=== PATIENT | female | born 1950 | race African-American/Black ===

== ENCOUNTER 2017-02-28 08:54 | Emergency (ER) | payer OTHER ==
[~2017-02-28] VITALS: Ht 154.9 cm; Wt 54.4 kg
[2017-02-28 09:58] LABS: Basophils # (auto) 0 uL; Basophils % (auto) 0.4 % (0.0-2.0); CONDITION Y; DEFINITIVE SEE PRINTOUT; Eosinophils # (auto) 0.1 uL; Hematocrit 35.9 % (36.0-46.0); Hemoglobin 11.8 g/dL (12.2-16.2); Lymphocytes # (auto) 1.6 uL; Lymphocytes % (auto) 19.5 % (10.0-50.0); Mean Corpuscular Hemoglobin 22.6 pg (28.0-32.0); Mean Corpuscular Hgb Conc. 32.8 g/dL (32.0-36.0); Mean Corpuscular Volume 69.1 fL (80.0-100.0); Mean Platelet Volume 9.3 fL (7.4-10.4); Monocytes # (auto) 0.7 uL; Monocytes % (auto) 7.8 % (0.0-12.0); Neutrophils # (auto) 5.9 uL; Neutrophils % (auto) 71.3 % (37.0-80.0); Platelet Count (auto) 257 10^3/uL (140-450); Red Cell Distribution Width 14.8 % (11.6-16.0); White Blood Cell 8.3 10^3/uL (4.4-10.8)
[2017-02-28] MEDS ORDERED: KETOROLAC TROMETH 30 MG/ML 1ML VIAL IV ONE (10:00)
[2017-02-28] MEDS ORDERED: METOCLOPRAMIDE HCL 5MG/ml INJ 2ml VIAL IV ONE (10:00)
[2017-02-28 10:19] LABS: Albumin 4.1 g/dL (3.4-5.0); BUN/Creatinine Ratio 23.2; Bilirubin, Total 0.6 mg/dL (0.2-1.0); Calcium 9.6 mg/dL (8.5-10.1); Magnesium 1.9 mg/dL (1.6-2.6); Potassium 3.5 mmol/L (3.5-5.1); Total Protein 8.2 g/dL (6.4-8.2)
[2017-02-28 10:40] VITALS: BP 154/85
== END 2017-02-28 13:22 | disposition home or self-care (01) ==
LOC: ER 09:04
DX: S20.211A Contusion of right front wall of thorax, initial encounter (principal); E11.9 Type 2 diabetes mellitus without complications; X58.XXXA Exposure to other specified factors, initial encounter; Y93.89 Activity, other specified; Y99.8 Other external cause status; Y92.89 Other specified places as the place of occurrence of the external cause
CPT/HCPCS: 36415; 71010; 80053; 83735; 84484; 85025; 93005; 94761; 96374; 96375; 99285; J1885; J2765

== ENCOUNTER 2025-03-29 09:09 | Emergency (ER) | payer OTHER ==
[~2025-03-29] VITALS: Ht 162.6 cm; Wt 44.5 kg
[~2025-03-29 09:09] MED LIST: DICL75TA3 PO
--- NOTE | 2025-03-29 09:39 | ED.PDOC ---
HPI Comments This is a 74-year-old female with past medical history of diabetes, hypertension, asthma and hypothyroidism brought in by EMS from home due to chest pain. Per patient, chest pain started today morning (does not remember exact of), located at left sternal border, nonradiating, and provoked, sharp in nature, which worsened with taking deep breaths and changing position. She also reports of shortness of breaths and having cough for few days. She denies fever, nausea, vomiting, headache, loss of consciousness on motor/sensory deficits. 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 Allergies: Coded Allergies: NO KNOWN ALLERGIES (Unverified , 02/28/17) Home Meds Active Scripts Diclofenac Sodium (Diclofenac Sodium Dr) 75 Mg Tab, 1 TAB PO BID PRN, #20 TAB 1 Refill Prov:ALLAN DIAZ MD 10/21/23 Mode of Arrival: EMS Past Medical History PAST MEDICAL HISTORY: Asthma, DM, HTN Surgical History: Denies all surgeries EMAIL SPECIALIST History: No Pertinent EMAIL SPECIALIST History Family History Family History: Unknown Social History Smoker: Non-Smoker Alcohol: Denies ETOH Use Drugs: Marijuana Lives In: Home Constitutional: denies: chills, diaphoresis, fatigue, fever, malaise, sweats, weakness, others EENTM: denies: blurred vision, double vision, ear bleeding, ear discharge, ear drainage, ear pain, ear ringing, eye pain, eye redness, hearing loss, mouth pain, mouth swelling, nasal discharge, nose bleeding, nose congestion, nose pain, photophobia, tearing, throat pain, throat swelling, voice changes, others Respiratory: denies: cough, hemoptysis, orthopnea, SOB at rest, shortness of breath, SOB with excertion, stridor, wheezing, others Cardiovascular: reports: chest pain; denies: dizzy spells, diaphoresis, Dyspnea on exertion, edema, irregular heart beat, left arm pain, lightheadedness, palpitations, PND, syncope, others Gastrointestinal: denies: abdomen distended, abdominal pain, blood streaked bowels, constipated, diarrhea, dysphagia, difficulty swallowing, hematemesis, melena, nausea, poor appetite, poor fluid intake, rectal bleeding, rectal pain, vomiting, others Genitourinary: denies: abnormal vagina bleeding, burning, dyspareunia, dysuria, flank pain, frequency, hematuria, incontinence, pain, , vagina discharge, urgency, others Neurological: denies: dizziness, fainting, headache, left sided numbness, left sided weakness, numbness, paresthesia, pre-existing deficit, right sided numbness, right sided weakness, seizure, speech problems, tingling, tremors, weakness, others Musculoskeletal: denies: back pain, gout, joint pain, joint swelling, muscle pain, muscle stiffness, neck pain, others Integumetry: denies: bruises, change in color, change in hair/nails, dryness, laceration, lesions, lumps, rash, wounds, others Allergic/Immunocompromised: denies: Difficulty Healing, Frequent Infections, Hives, Itching, others Hematologic/Lymphatic: denies: anemia, blood clots, easy bleeding, easy bruising, swollen glands, others Endocrine: denies: excessive hunger, excessive sweating, excessive thirst, excessive urination, flushing, intolerance to cold, intolerance to heat, unexplained weight gain, unexplained weight loss, others Psychiatric: denies: anxiety, bipolar disorder, depression, hopeless, panic disorder, schizophrenia, sleepless, suicidal, others Physical Exam General Appearance: No Apparent Distress, Normal HEENT: Normal ENT Inspection, Pharynx Normal, TMs Normal Neck: Full Range of Motion, Non-Tender, Normal, Normal Inspection Respiratory: Lungs Clear, No Accessory Muscle Use, No Respiratory Distress, Normal Breath Sounds, Other (Chest tender on palpation) Cardiovascular: No Edema, No JVD, No Murmur, No Gallop, Normal Peripheral Pulses, Regular Rate/Rhythm Breast Exam: Deferred Gastrointestinal: No Organomegaly, Non Tender, No Pulsatile Mass, Normal Bowel Sounds, Soft Genitalia: Deferred Pelvic: Deferred Rectal: Deferred Extremities: No calf tenderness, Normal capillary refill, Normal inspection, Normal range of motion, Non-tender, No pedal edema Musculoskeletal : Apperance: Normal Neurologic: Alert, drop tester II-XII nml as Tested, No Motor Deficits, Normal Affect, Normal Mood, No Sensory Deficits Cerebellar Function: Normal Reflexes: Normal Skin: Dry, Normal Color, Warm Lymphatic: No Adenopathy EKG EKG : Comments EKGs shows sinus rhythm with ST depression on inferior and lateral leads Was a procedure done? Was a procedure done?: No CP Differential Dx Differential Diagnosis: Other Differential Diagnosis: Angina, Chest Wall Pain, Costochondritis, Esophageal reflux/spasm X-Ray, Labs, Meds, VS Vital Signs Date Time Temp Pulse Resp B/P (MAP) Pulse Ox O2 Delivery O2 Flow Rate FiO2 03/29/25 18:54 84 18 152/71 03/29/25 18:00 83 17 152/71 (98) 98 03/29/25 16:00 97.9 105 17 142/78 (99) 98 97.9 03/29/25 14:38 95 Room Air* 0 21 03/29/25 14:33 76 17 95 Room Air* 0 21 03/29/25 14:00 75 17 139/77 (97) 98 03/29/25 12:09 73 03/29/25 12:00 71 17 148/73 (98) 98 03/29/25 10:42 77 16 140/72 03/29/25 10:12 80 17 155/91 03/29/25 10:04 75 03/29/25 10:00 98.3 77 17 155/91 (112) 98 98.3 03/29/25 09:15 98.0 78 18 121/99 96 98.0 03/29/25 09:13 69 Lab Test 03/29/25 12:45 03/29/25 11:37 03/29/25 10:51 03/29/25 10:28 Range/Units Sodium Level 142 136-145 mmol/L Potassium Level 3.6 3.5-5.1 mmol/L Chloride Level 106 98-107 mmol/L Carbon Dioxide Level 25 20-31 mmol/L Anion Gap 11 5-15 Blood Urea Nitrogen 11 9-23 mg/dL Creatinine 1.07 H 0.550-1.02 mg/dL Glomerular Filtration Rate Calc 54 >90 mL/min BUN/Creatinine Ratio 10.3 10.0-20.0 Serum Glucose 156 H 74-106 mg/dL Calcium Level 8.9 8.7-10.4 mg/dL Troponin I High Sensitivity 13 12 </=34 ng/L POC Glucose 36 *L 70-106 mg/dl Urine Color Colorless Yellow Urine Clarity Clear Clear Urine pH 7.0 5.0-9.0 Urine Specific [place] 1.008 1.001-1.035 Urine Protein Negative Negative Urine Ketones Negative Negative Urine Blood Negative Negative /uL Urine Nitrite Negative Negative Urine Bilirubin Negative Negative Urine Urobilinogen Normal Negative mg/dL Urine Leukocyte Esterase Negative Negative /uL Urine RBC None seen 0 - 4 /hpf Urine Microscopic WBC 1 0-5 /HPF Urine Squamous Epithelial Cells Few <5 /hpf Urine Bacteria None seen None Seen /hpf Urine Glucose Normal Normal mg/dL Test 03/29/25 09:57 Range/Units White Blood Count 8.4 4.4-10.8 10^3/uL Red Blood Count 4.35 4.0-5.20 10^6/uL Hemoglobin 9.4 L 12.2-16.2 g/dL Hematocrit 29.6 L 36.0-46.0 % Mean Corpuscular Volume 68.0 L 80.0-100.0 fL Mean Corpuscular Hemoglobin 21.7 L 28.0-32.0 pg Mean Corpuscular Hemoglobin Concent 32.0 32.0-36.0 g/dL Red Cell Distribution Width 15.4 H 11.8-14.3 % Platelet Count 435 140-450 10^3/uL Mean Platelet Volume 7.3 6.9-10.8 fL Neutrophils (%) (Auto) 73.8 37.0-80.0 % Lymphocytes (%) (Auto) 15.9 10.0-50.0 % Monocytes (%) (Auto) 8.1 0.0-12.0 % Eosinophils (%) (Auto) 0.9 0.0-7.0 % Basophils (%) (Auto) 1.3 0.0-2.0 % Neutrophils # (Auto) 6.2 1.6-8.6 10 ^3/uL Lymphocytes # (Auto) 1.3 0.4-5.4 10 ^3/uL Monocytes # (Auto) 0.7 0-1.3 10 ^3/uL Eosinophils # (Auto) 0.1 0-0.8 10 ^3/uL Basophils # (Auto) 0.1 0-0.2 10 ^3/uL Nucleated Red Blood Cells 0.0 % Sodium Level 143 136-145 mmol/L Potassium Level 3.5 3.5-5.1 mmol/L Chloride Level 107 98-107 mmol/L Carbon Dioxide Level 26 20-31 mmol/L Anion Gap 10 5-15 Blood Urea Nitrogen 8 L 9-23 mg/dL Creatinine 1.03 H 0.550-1.02 mg/dL Glomerular Filtration Rate Calc 56 >90 mL/min BUN/Creatinine Ratio 7.8 L 10.0-20.0 Serum Glucose 77 74-106 mg/dL Calcium Level 9.4 8.7-10.4 mg/dL Magnesium Level 1.3 L 1.6-2.6 mg/dL Troponin I High Sensitivity 11 </=34 ng/L B-Type Natriuretic Peptide 101.34 0-100 pg/mL Current Medications Medications (Trade) Dose Ordered Sig/Annika Route Start Time Stop Time Status Last Admin Morphine Sulfate 4 mg ONCE ONCE IV 03/29/25 09:45 03/29/25 09:46 DC 03/29/25 10:12 Ondansetron HCl (Zofran) 4 mg ONCE ONCE IV 03/29/25 09:45 03/29/25 09:46 DC 03/29/25 10:12 Atorvastatin Calcium (Lipitor) 40 mg ONCE ONCE PO 03/29/25 09:45 03/29/25 09:46 DC 03/29/25 10:13 Dextrose 50 ml ONCE ONCE IV 03/29/25 11:45 03/29/25 11:46 DC 03/29/25 11:58 Magnesium Sulfate/ Dextrose 100 ml @ 100 mls/hr Q1H IV 03/29/25 12:15 03/29/25 16:14 DC 03/29/25 16:45 Morphine Sulfate 4 mg ONCE ONCE IV 03/29/25 18:45 03/29/25 18:46 DC 03/29/25 18:54 Ondansetron HCl (Zofran) 4 mg ONCE ONCE IV 03/29/25 18:45 03/29/25 18:46 DC 03/29/25 18:54 Time of 1ST Reevaluation: 19:41 Reevaluation 1ST: Unchanged Patient Education/Counseling: Diagnosis, Treatment, Prognosis, Need For Follow Up Family Education/Counseling: No Family Present Comments Patient came to the hospital due to chest pain. Patient was vitally stable. Serial EKGs showed ST depression on inferior leads and lateral leads. Trop I within normal limits Hb was low at 9.4. Patient's glucose was 36, 50 mL of 50% dextrose was given Magnesium was 1.3, for g magnesium given Patient was also given aspirin, atorvastatin, morphine and Zofran On subsequent checkup, patient was feeling the same Patient's status discussed with [place], agreed to transfer the patient Patient will be transferred SEPSIS Sepsis Screen Date sepsis recognized/suspect: Mar 29, 2025 Time Sepsis recognized/suspect: 919 Recent Procedure: No On Antibiotic Therapy: No Respiratory Rate >20: No Heart Rate >90: No Temp<36 C (96.8 F) or >38.3 C: No SBP <90 or MAP <65 mmHG: No New Acute Mental Status Change: No Is the patient on CPAP, BIPAP,: No Physician Orders Electrocardigram (03/29/25 09:17) Electrocardigram (03/29/25 10:17) Electrocardigram (03/29/25 12:17) Chest Portable (03/29/25 09:24) Imaging Transfer Request (03/29/25 17:01) Vital Signs Date Time Temp Pulse Resp B/P (MAP) Pulse Ox O2 Delivery O2 Flow Rate FiO2 03/29/25 18:54 84 18 152/71 03/29/25 18:00 83 17 152/71 (98) 98 03/29/25 16:00 97.9 105 17 142/78 (99) 98 97.9 03/29/25 14:38 95 Room Air* 0 21 03/29/25 14:33 76 17 95 Room Air* 0 21 03/29/25 14:00 75 17 139/77 (97) 98 03/29/25 12:09 73 03/29/25 12:00 71 17 148/73 (98) 98 03/29/25 10:42 77 16 140/72 03/29/25 10:12 80 17 155/91 03/29/25 10:04 75 03/29/25 10:00 98.3 77 17 155/91 (112) 98 98.3 03/29/25 09:15 98.0 78 18 121/99 96 98.0 03/29/25 09:13 69 Laboratory Tests Test 03/29/25 09:57 White Blood Count 8.4 10^3/uL (4.4-10.8) Medications Medications Dose Ordered Sig/Anniak Route Start Time Stop Time Status Last Admin Dose Admin Atorvastatin Calcium 40 mg ONCE ONCE PO 03/29/25 09:45 03/29/25 09:46 DC 03/29/25 10:13 Dextrose 50 ml ONCE ONCE IV 03/29/25 11:45 03/29/25 11:46 DC 03/29/25 11:58 Magnesium Sulfate/ Dextrose 100 ml @ 100 mls/hr Q1H IV 03/29/25 12:15 03/29/25 16:14 DC 03/29/25 16:45 Morphine Sulfate 4 mg ONCE ONCE IV 03/29/25 09:45 03/29/25 09:46 DC 03/29/25 10:12 Morphine Sulfate 4 mg ONCE ONCE IV 03/29/25 18:45 03/29/25 18:46 DC 03/29/25 18:54 Ondansetron HCl 4 mg ONCE ONCE IV 03/29/25 09:45 03/29/25 09:46 DC 03/29/25 10:12 Ondansetron HCl 4 mg ONCE ONCE IV 03/29/25 18:45 03/29/25 18:46 DC 03/29/25 18:54 Departure 1 Departure Time of Disposition: 16:21 ([place] Authorization: [id number] presented with chest pain that was concerning for possible STEMI, ACS, PE, Pneumonia, Muscle Strain, COPD, Dissection. Data: 1. I ordered and reviewed the result of at least 3 labs including a CBC, BMP, and Troponin. 2. I independently interpreted the following tests: EKG which shows sinus arrhythmia and Chest X-ray which shows pulmonary vascular congestion _.Risk:This patient has a high risk of morbidity due to further diagnostic testing or treatment and may suffer from an acute cardiac or respiratory disorder. Workup reveals concern for ACS and patient should be admitted for further workup and possible expert consultation. ) Impression: Primary Impression: Acute chest pain Additional Impression: Musculoskeletal chest pain Disposition: 30 STILL A PATIENT Admit to: Tele Condition: Serious Critical Care Note Critical Care Time?: Yes Critical care comment: Acute chest pain Authorized and Performed by: Em Leblanc MD Total critical care time: Approximately 38 minutes Due to a high probability of clinically significant, life threatening deterioration, the patient required my highest level of preparedness to intervene emergently and I personally spent this critical care time directly and personally managing the patient. This critical care time included obtaining a history; examining the patient; pulse oximetry; ordering and review of studies; arranging urgent treatment with development of a management plan; evaluation of patient's response to treatment; frequent reassessment; and, discussions with other providers. This critical care time was performed to assess and manage the high probability of imminent, life-threatening deterioration that could result in multi-organ failure. It was exclusive of separately billable procedures and treating other patients and teaching time. Please see my other sections and the rest of the note for further information on patient assessment and treatment. Stability Stability form required: No Heart Score Heart Score: Heart Score Response (Comments) Value History Moderate Suspicious 1 EKG Repolarization Disturb 1 Age >65 2 Risk Factors 1 or 2 risk factors 1 Troponin Normal limit 0 Total 5 [place] Mar 29, 2025 09:39 EM LEBLANC MD Mar 29, 2025 16:21
--- NOTE | 2025-03-29 09:45 | ECG ---
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
--- NOTE | 2025-03-29 10:02 | DVH ---
XY CHEST PORTABLE, HISTORY: cp COMPARISON: XY CHEST PORTABLE on DOS: 10/21/23 XY CHEST PORTABLE on DOS: 10/21/23 TECHNICAL DATA: 1 view of the chest was obtained. FINDINGS: Lines and tubes: None Cardiomediastinal silhouette: normal Pulmonary vasculature: prominent Lung expansion: low Lung airspace: normal Lung interstitium: normal Pleura: normal Pneumothorax: no Bones: Unremarkable Other: no IMPRESSION: Pulmonary vascular congestion.
--- NOTE | 2025-03-29 10:06 | ECG ---
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
[2025-03-29 10:12] LABS: Hemoglobin 9.4 g/dL (12.2-16.2); Nucleated Red Blood Cells % 0.0 %
[2025-03-29] MEDS: ONDANSETRON HCL 4 MG/2 ML VIAL IV ONE ×2 (10:12→18:54)
[2025-03-29] MEDS: MORPHINE SULFATE 4 MG/ML SYR/VIAL IV ONE ×2 (10:12→18:54)
[2025-03-29] MEDS: ATORVASTATIN 20 MG TAB PO ONE (10:13)
[2025-03-29 10:14] LABS: Hematocrit 29.6 % (36.0-46.0); Mean Corpuscular Hemoglobin 21.7 pg (28.0-32.0); Mean Corpuscular Volume 68.0 fL (80.0-100.0)
[2025-03-29 10:17] LABS: Anion Gap 10 (5-15); Carbon Dioxide 26 mmol/L (20-31); Chloride 107 mmol/L (98-107); Potassium 3.5 mmol/L (3.5-5.1); Sodium 143 mmol/L (136-145)
[2025-03-29 10:18] LABS: Calcium 9.4 mg/dL (8.7-10.4)
[2025-03-29 10:23] LABS: BUN/Creatinine Ratio 7.8 (10.0-20.0); Blood Urea Nitrogen 8 mg/dL (9-23); Glucose 77 mg/dL (74-106)
[2025-03-29] MEDS: DEXTROSE (50%) 50ML SYRG IV ONE (11:58)
--- NOTE | 2025-03-29 12:08 | ECG ---
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
[2025-03-29] MEDS: MAGNESIUM SULFATE 1GM/100ML 100 ML IV SCH (13:24)
[2025-03-29 14:33] VITALS: PULSE 76; RESP 17; O2SAT 95
[2025-03-29 16:37] LABS: Chloride 106 mmol/L (98-107); Potassium 3.6 mmol/L (3.5-5.1); Sodium 142 mmol/L (136-145)
[2025-03-29 16:38] LABS: Anion Gap 11 (5-15); Carbon Dioxide 25 mmol/L (20-31)
[2025-03-29 16:39] LABS: Calcium 8.9 mg/dL (8.7-10.4)
[2025-03-29 16:44] LABS: BUN/Creatinine Ratio 10.3 (10.0-20.0); Blood Urea Nitrogen 11 mg/dL (9-23)
[2025-03-29 16:45] LABS: Glucose 156 mg/dL (74-106)
[2025-03-29 18:31] LABS: Urine Protein, UAD Negative (Negative)
[2025-03-29 19:50] VITALS: PULSE 84; RESP 14; O2SAT 95
[2025-03-29 23:38] VITALS: BP 121/67; PULSE 80; RESP 16; TEMP 98.2; O2SAT 98
== END 2025-03-29 22:41 | disposition short-term general hospital (02) ==
LOC: ER 09:09 → EDUNIT# 09:09 → EDBD 09:09 → ER 22:41
DX: R07.89 Other chest pain (principal); F12.90 Cannabis use, unspecified, uncomplicated; E11.9 Type 2 diabetes mellitus without complications; I10 Essential (primary) hypertension; J45.909 Unspecified asthma, uncomplicated; Z79.899 Other long term (current) drug therapy
CPT/HCPCS: 36415; 71045; 80048; 81001; 82947; 83735; 83880; 84484; 85025; 93005; 96365; 96366; 96375; 96376; 99285; J2270; J2405; J3475; J7042; 82962; 99291

== ENCOUNTER 2025-04-28 20:07 | Inpatient (IN) | payer OTHER ==
[~2025-04-28] VITALS: Ht 165.1 cm; Wt 42.1 kg
--- NOTE | 2025-04-28 20:36 | ED.PDOC ---
History of present illness HPI Comments 74-year-old female who came to ER via EMS for hyperglycemia. Has history of hypertension and diabetes, has good compliance to her medications. With the past week, her blood sugar levels has been elevated despite medications. For the past day, blood sugar levels read "hi". Patient currently complaining of headaches and dizziness. 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 Allergies: Coded Allergies: NO KNOWN ALLERGIES (Unverified , 02/28/17) Home Meds Active Scripts Diclofenac Sodium (Diclofenac Sodium Dr) 75 Mg Tab, 1 TAB PO BID PRN, #20 TAB 1 Refill Prov:ALLAN DIAZ MD 10/21/23 Information Source: Patient Mode of Arrival: EMS Timing: Days Duration: Since onset [place]: Shaky, Sweaty Symptoms: Anxious, Shaky, Sweaty History of: Diabetes, Oral hypoglycemic use Past Medical History PAST MEDICAL HISTORY: Asthma, DM, HTN Surgical History: Denies all surgeries CADDY History: No Pertinent CADDY History Family History Family History: Unknown Social History Smoker: Non-Smoker Alcohol: Denies ETOH Use Drugs: Denies Drug Use Lives In: Home Constitutional: denies: chills, diaphoresis, fatigue, fever, malaise, sweats, weakness, others EENTM: denies: blurred vision, double vision, ear bleeding, ear discharge, ear drainage, ear pain, ear ringing, eye pain, eye redness, hearing loss, mouth pain, mouth swelling, nasal discharge, nose bleeding, nose congestion, nose pain, photophobia, tearing, throat pain, throat swelling, voice changes, others Respiratory: denies: cough, hemoptysis, orthopnea, SOB at rest, shortness of b reath, SOB with excertion, stridor, wheezing, others Cardiovascular: denies: chest pain, dizzy spells, diaphoresis, Dyspnea on exertion, edema, irregular heart beat, left arm pain, lightheadedness, palpitations, PND, syncope, others Gastrointestinal: denies: abdomen distended, abdominal pain, blood streaked bowels, constipated, diarrhea, dysphagia, difficulty swallowing, hematemesis, melena, nausea, poor appetite, poor fluid intake, rectal bleeding, rectal pain, vomiting, others Neurological: reports: headache, weakness; denies: dizziness, fainting, left sided numbness, left sided weakness, numbness, paresthesia, pre-existing deficit, right sided numbness, right sided weakness, seizure, speech problems, tingling, tremors, others Musculoskeletal: denies: back pain, gout, joint pain, joint swelling, muscle pain, muscle stiffness, neck pain, others Integumetry: denies: bruises, change in color, change in hair/nails, dryness, laceration, lesions, lumps, rash, wounds, others Allergic/Immunocompromised: denies: Difficulty Healing, Frequent Infections, Hives, Itching, others Hematologic/Lymphatic: denies: anemia, blood clots, easy bleeding, easy bruising, swollen glands, others Endocrine: denies: excessive hunger, excessive sweating, excessive thirst, excessive urination, flushing, intolerance to cold, intolerance to heat, unexplained weight gain, unexplained weight loss, others Psychiatric: denies: anxiety, bipolar disorder, depression, hopeless, panic disorder, schizophrenia, sleepless, suicidal, others Physical Exam General Appearance: No Apparent Distress, Normal HEENT: Normal ENT Inspection, Pharynx Normal, TMs Normal Neck: Full Range of Motion, Non-Tender, Normal, Normal Inspection Respiratory: Chest Non-Tender, Lungs Clear, No Accessory Muscle Use, No Respiratory Distress, Normal Breath Sounds Cardiovascular: No Edema, No JVD, No Murmur, No Gallop, Normal Peripheral Pulses, Regular Rate/Rhythm Breast Exam: Deferred Gastrointestinal: No Organomegaly, Non Tender, No Pulsatile Mass, Normal Bowel Sounds, Soft Genitalia: Deferred Pelvic: Deferred Rectal: Deferred Extremities: No calf tenderness, Normal capillary refill, Normal inspection, Normal range of motion, Non-tender, No pedal edema Musculoskeletal : Apperance: Normal Neurologic: Alert, lathe set up operator II-XII nml as Tested, No Motor Deficits, Normal Affect, Normal Mood, No Sensory Deficits Cerebellar Function: Normal Reflexes: Normal Skin: Dry, Normal Color, Warm Lymphatic: No Adenopathy Was a procedure done? Was a procedure done?: No Differential Diagnosis (DM) Differential Diagnosis: Dehydration, DKA, Electrolyte Abnormality, Hyperglycemia X-Ray, Labs, Meds, VS Vital Signs Date Time Temp Pulse Resp B/P (MAP) Pulse Ox O2 Delivery O2 Flow Rate FiO2 04/28/25 20:25 97.7 97 17 132/68 97 97.7 Lab Test 04/28/25 20:54 04/28/25 20:53 04/28/25 20:50 04/28/25 20:41 Range/Units White Blood Count 8.9 4.4-10.8 10^3/uL Red Blood Count 5.69 H 4.0-5.20 10^6/uL Hemoglobin 11.9 L 12.2-16.2 g/dL Hematocrit 37.1 36.0-46.0 % Mean Corpuscular Volume 65.1 L 80.0-100.0 fL Mean Corpuscular Hemoglobin 21.0 L 28.0-32.0 pg Mean Corpuscular Hemoglobin Concent 32.2 32.0-36.0 g/dL Red Cell Distribution Width 15.5 H 11.8-14.3 % Platelet Count 271 140-450 10^3/uL Mean Platelet Volume 9.2 6.9-10.8 fL Neutrophils (%) (Auto) 66.5 37.0-80.0 % Lymphocytes (%) (Auto) 24.4 10.0-50.0 % Monocytes (%) (Auto) 7.9 0.0-12.0 % Eosinophils (%) (Auto) 0.6 0.0-7.0 % Basophils (%) (Auto) 0.6 0.0-2.0 % Neutrophils # (Auto) 6.0 1.6-8.6 10 ^3/uL Lymphocytes # (Auto) 2.2 0.4-5.4 10 ^3/uL Monocytes # (Auto) 0.7 0-1.3 10 ^3/uL Eosinophils # (Auto) 0.1 0-0.8 10 ^3/uL Basophils # (Auto) 0.1 0-0.2 10 ^3/uL Nucleated Red Blood Cells 0.1 % Sodium Level 122 L 136-145 mmol/L Potassium Level 5.5 H 3.5-5.1 mmol/L Chloride Level 86 L 98-107 mmol/L Carbon Dioxide Level 24 20-31 mmol/L Anion Gap 12 5-15 Blood Urea Nitrogen 49 H 9-23 mg/dL Creatinine 2.10 H 0.550-1.02 mg/dL Glomerular Filtration Rate Calc 24 >90 mL/min BUN/Creatinine Ratio 23.3 H 10.0-20.0 Serum Glucose 504 *H 74-106 mg/dL Calcium Level 9.6 8.7-10.4 mg/dL Magnesium Level 2.2 1.6-2.6 mg/dL Total Bilirubin 0.4 0.2-1.0 mg/dL Aspartate Amino Transferase (AST) 17 13-40 U/L Alanine Aminotransferase (ALT) 15 7-40 U/L Alkaline Phosphatase 80 46-116 U/L Total Protein 9.2 H 5.7-8.2 g/dL Albumin 4.7 3.2-4.8 g/dL POC Glucose 502 *H 70-106 mg/dl Blood Gas Specimen Type Venous Blood Gas Sample Site Vbg - n/a Blood Gas Patient Temperature 37.0 Arterial Blood Date Drawn Brendan Test N/a Venous Blood pH 7.400 7.320-7.430 Venous Blood pCO2 at Patient Temp 36.6 L 38.0-54.0 mmHg Venous Blood pO2 at Patient Temp < 36.5 23.0-48.0 mmHg Venous Blood HCO3 22.2 22.0-29.0 mmol/L Venous Blood Base Excess -2.1 L -2.0-3.0 mmol/L Blood Gas Modality Room air FiO2 % 21.0 Urine Color Colorless Yellow Urine Clarity Clear Clear Urine pH 5.0 5.0-9.0 Urine Specific [place] 1.004 1.001-1.035 Urine Protein Negative Negative Urine Ketones Negative Negative Urine Blood Negative Negative /uL Urine Nitrite Negative Negative Urine Bilirubin Negative Negative Urine Urobilinogen Normal Negative mg/dL Urine Leukocyte Esterase Negative Negative /uL Urine RBC <1 0 - 4 /hpf Urine Microscopic WBC < 1 0-5 /HPF Urine Squamous Epithelial Cells Few <5 /hpf Urine Bacteria None seen None Seen /hpf Urine Glucose 4+ H Normal mg/dL Current Medications Medications (Trade) Dose Ordered Sig/Annika Route Start Time Stop Time Status Last Admin Sodium Chloride 1,000 ml @ 1,000 mls/hr Q1H ONCE IV 04/28/25 20:45 04/28/25 21:44 DC 04/28/25 21:17 Insulin Human Regular (InsuLIN R) 4 units ONCE ONCE SC 04/28/25 20:45 04/28/25 20:46 DC 04/28/25 20:59 Time of 1ST Reevaluation: 20:34 Reevaluation 1ST: Unchanged Patient Education/Counseling: Diagnosis, Treatment Family Education/Counseling: No Family Present SEPSIS Sepsis Screen Date sepsis recognized/suspect: Apr 28, 2025 Time Sepsis recognized/suspect: 2012 Recent Procedure: No On Antibiotic Therapy: No Respiratory Rate >20: No Heart Rate >90: No Temp<36 C (96.8 F) or >38.3 C: No SBP <90 or MAP <65 mmHG: No New Acute Mental Status Change: No Is the patient on CPAP, BIPAP,: No Physician Orders Venous Blood Gas (04/28/25 20:41) Vital Signs Date Time Temp Pulse Resp B/P (MAP) Pulse Ox O2 Delivery O2 Flow Rate FiO2 04/28/25 20:25 97.7 97 17 132/68 97 97.7 Laboratory Tests Test 04/28/25 20:54 White Blood Count 8.9 10^3/uL (4.4-10.8) Medications Medications Dose Ordered Sig/Annika Route Start Time Stop Time Status Last Admin Dose Admin Insulin Human Regular 4 units ONCE ONCE SC 04/28/25 20:45 04/28/25 20:46 DC 04/28/25 20:59 Sodium Chloride 1,000 ml @ 1,000 mls/hr Q1H ONCE IV 04/28/25 20:45 04/28/25 21:44 DC 04/28/25 21:17 Departure 1 Departure Time of Disposition: 22:28 Impression: Primary Impression: Acute renal injury Additional Impressions: Type 2 diabetes mellitus with hyperglycemia Hyponatremia Hypochloremia Hyperkalemia Disposition: ADMITTED INPATIENT Admit to: Med Surg Condition: Guarded Discharged With: Self Comments 74-year-old female with a history of type 2 diabetes now presents with fatigue and generalized weakness and polydipsia. On lab review her blood sugar is quite elevated at 502. Patient's sodium is low at 122. Chloride is low at 86. She has acute renal injury with BUN creatinine elevated at 49 and 2.1. Potassium is elevated at 5.5. Anion gap is normal at 12. Patient was given IV fluids and insulin. Patient will need to be admitted for supportive care and further workup. Critical Care Note Critical Care Time?: Yes (35 min-critical care time only) Critical care comment: Hyperglycemia Total critical care time: Approximately 36 minutes Due to a high probability of clinically significant, life threatening deterioration, the patient required my highest level of preparedness to intervene emergently and I personally spent this critical care time directly and personally managing the patient. This critical care time included obtaining a history; examining the patient; pulse oximetry; ordering and review of studies; arranging urgent treatment with development of a management plan; evaluation of patient's response to treatment; frequent reassessment; and, discussions with other providers. This critical care time was performed to assess and manage the high probability of imminent, life-threatening deterioration that could result in multi-organ failure. It was exclusive of separately billable procedures and treating other patients. Stability Stability form required: No Heart Score Heart Score: Heart Score Response (Comments) Value History N/A 0 EKG N/A 0 Age N/A 0 Risk Factors N/A 0 Troponin N/A 0 Total 0 I personally scribed for GIAN KUO MD ([email or web address]) on 04/28/25 at 20:36. Electronically submitted by Felipe Mata ([email or web address]). GIAN KUO MD Apr 28, 2025 20:36
[2025-04-28] MEDS: InsuLIN REG 1unit/0.01ml Soln (100units/ml) SC ONE (20:59)
[2025-04-28 21:03] LABS: Nucleated Red Blood Cells % 0.1 %
[2025-04-28 21:05] LABS: Hematocrit 37.1 % (36.0-46.0); Hemoglobin 11.9 g/dL (12.2-16.2); Mean Corpuscular Hemoglobin 21.0 pg (28.0-32.0); Mean Corpuscular Volume 65.1 fL (80.0-100.0)
[2025-04-28] MEDS: SODIUM CHLORIDE 0.9% 1,000 ML IV ONE (21:17)
[2025-04-28 21:19] LABS: Alanine Aminotransferase 15 U/L (7-40); Albumin 4.7 g/dL (3.2-4.8); Alkaline Phosphatase 80 U/L (46-116); Anion Gap 12 (5-15); BUN/Creatinine Ratio 23.3 (10.0-20.0); Calcium 9.6 mg/dL (8.7-10.4); Carbon Dioxide 24 mmol/L (20-31); Magnesium 2.2 mg/dL (1.6-2.6)
[2025-04-28 21:20] LABS: Bilirubin, Total 0.4 mg/dL (0.2-1.0)
[2025-04-28 21:41] LABS: Blood Urea Nitrogen 49 mg/dL (9-23); Chloride 86 mmol/L (98-107); Potassium 5.5 mmol/L (3.5-5.1); Sodium 122 mmol/L (136-145); Total Protein 9.2 g/dL (5.7-8.2)
[2025-04-28 21:55] LABS: Glucose 504 mg/dL (74-106)
[2025-04-28 22:14] LABS: Urine Protein, UAD Negative (Negative)
[2025-04-29] MEDS ORDERED: DEXTROSE (50%) 50ML SYRG IV PRN ×3 (01:15→14:00)
[2025-04-29] MEDS ORDERED: ACETAMINOPHEN 325 MG TAB PO PRN (01:15)
[2025-04-29] MEDS: INSULIN LANTUS (GLARGINE) 1 /0.01ml (100units/ml) SC ONE (01:15)
--- NOTE | 2025-04-29 01:21 | DVHHPRES ---
History of Present Illness Resident Creating Document: ROMAIN CALLAHAN History of Present Illness Niurka Leija is a 74-year-old female patient who presents to the ED with chief complaint of generalized weakness, fatigue, right-sided headache 10/10 which lasted for over 24 hours, pollakiuria, unintentional weight loss (in the last month she went from 122 to 86 lb), nausea intermittent dyspnea in variable functional class, dizziness and colicky right upper quadrant pain. Patient reports her glucose was above 600, deciding to stop antidiabetic medication the day of her admission admission, and came to the ED to be evaluated in the hospital. Denies any other associated symptoms, including sick contacts, Past medical history: Hypertension, dyslipidemia, diabetes, CVA one month ago, asthma, hypothyroidism. Surgical history: Denies Family history: Noncontributory Social history: Lives in [place] with (he is her next of kin). Ex t obacco abuse (20 pack-year history of smoking) quit in 1979. Denies current tobacco, alcohol and other drug abuse Allergies: Denies Home medication: Glipizide, metformin, levothyroxine 25 mcg p.o. daily, losartan 100 mg p.o. daily, hydrochlorothiazide Patient seen and examined at bedside. Currently has no new complaints. Obtain serum osmolarity which was above 300. Initiated protocol for [facility] (serum osmolarity re-evaluate 300 and glucose above 600 at home). Was admitted to [facility]. Past Medical History Per HPI Past Surgical History Per HPI Family History Per HPI Past Social History Per HPI Review of Systems Review of Systems Per HPI Allergies: Coded Allergies: NO KNOWN ALLERGIES (Unverified , 02/28/17) Exam Vital Signs Vital Signs Date Time Temp Pulse Resp B/P (MAP) Pulse Ox O2 Delivery O2 Flow Rate FiO2 04/28/25 23:06 98.1 89 16 127/72 (90) 100 98.1 Exam Patient lying in bed, in no acute distress General: Lucid, cachectic, afebrile, mucosae are dry Cardiovascular: Normal S1 and S2. No murmurs, gallops or rubs Respiratory: Normal ventilation mechanics. Clear lung sounds on auscultation Abdomen: Soft, nontender, no organomegaly, normal bowel sounds MSK/skin: Mobilizes 4 limbs. Skin is dry and warm Neurological: Oriented in 3 spheres. No motor no sensitive deficits. Pupils are isocoric and reactive Labs/Xrays Labs Test 04/28/25 20:54 04/28/25 20:53 04/28/25 20:50 04/28/25 20:41 Range/Units White Blood Count 8.9 4.4-10.8 10^3/uL Red Blood Count 5.69 H 4.0-5.20 10^6/uL Hemoglobin 11.9 L 12.2-16.2 g/dL Hematocrit 37.1 36.0-46.0 % Mean Corpuscular Volume 65.1 L 80.0-100.0 fL Mean Corpuscular Hemoglobin 21.0 L 28.0-32.0 pg Mean Corpuscular Hemoglobin Concent 32.2 32.0-36.0 g/dL Red Cell Distribution Width 15.5 H 11.8-14.3 % Platelet Count 271 140-450 10^3/uL Mean Platelet Volume 9.2 6.9-10.8 fL Neutrophils (%) (Auto) 66.5 37.0-80.0 % Lymphocytes (%) (Auto) 24.4 10.0-50.0 % Monocytes (%) (Auto) 7.9 0.0-12.0 % Eosinophils (%) (Auto) 0.6 0.0-7.0 % Basophils (%) (Auto) 0.6 0.0-2.0 % Neutrophils # (Auto) 6.0 1.6-8.6 10 ^3/uL Lymphocytes # (Auto) 2.2 0.4-5.4 10 ^3/uL Monocytes # (Auto) 0.7 0-1.3 10 ^3/uL Eosinophils # (Auto) 0.1 0-0.8 10 ^3/uL Basophils # (Auto) 0.1 0-0.2 10 ^3/uL Nucleated Red Blood Cells 0.1 % Sodium Level 122 L 136-145 mmol/L Potassium Level 5.5 H 3.5-5.1 mmol/L Chloride Level 86 L 98-107 mmol/L Carbon Dioxide Level 24 20-31 mmol/L Anion Gap 12 5-15 Blood Urea Nitrogen 49 H 9-23 mg/dL Creatinine 2.10 H 0.550-1.02 mg/dL Glomerular Filtration Rate Calc 24 >90 mL/min BUN/Creatinine Ratio 23.3 H 10.0-20.0 Serum Glucose 504 *H 74-106 mg/dL Calcium Level 9.6 8.7-10.4 mg/dL Magnesium Level 2.2 1.6-2.6 mg/dL Total Bilirubin 0.4 0.2-1.0 mg/dL Aspartate Amino Transferase (AST) 17 13-40 U/L Alanine Aminotransferase (ALT) 15 7-40 U/L Alkaline Phosphatase 80 46-116 U/L Total Protein 9.2 H 5.7-8.2 g/dL Albumin 4.7 3.2-4.8 g/dL POC Glucose 502 *H 70-106 mg/dl Blood Gas Specimen Type Venous Blood Gas Sample Site Vbg - n/a Blood Gas Patient Temperature 37.0 Arterial Blood Date Drawn [id number] Brendan Test N/a Venous Blood pH 7.400 7.320-7.430 Venous Blood pCO2 at Patient Temp 36.6 L 38.0-54.0 mmHg Venous Blood pO2 at Patient Temp < 36.5 23.0-48.0 mmHg Venous Blood HCO3 22.2 22.0-29.0 mmol/L Venous Blood Base Excess -2.1 L -2.0-3.0 mmol/L Blood Gas Modality Room air FiO2 % 21.0 Urine Color Colorless Yellow Urine Clarity Clear Clear Urine pH 5.0 5.0-9.0 Urine Specific [place] 1.004 1.001-1.035 Urine Protein Negative Negative Urine Ketones Negative Negative Urine Blood Negative Negative /uL Urine Nitrite Negative Negative Urine Bilirubin Negative Negative Urine Urobilinogen Normal Negative mg/dL Urine Leukocyte Esterase Negative Negative /uL Urine RBC <1 0 - 4 /hpf Urine Microscopic WBC < 1 0-5 /HPF Urine Squamous Epithelial Cells Few <5 /hpf Urine Bacteria None seen None Seen /hpf Urine Glucose 4+ H Normal mg/dL SEPSIS Sepsis Screen Date sepsis recognized/suspect: Apr 28, 2025 Time Sepsis recognized/suspect: 2012 Recent Procedure: No On Antibiotic Therapy: No Respiratory Rate >20: No Heart Rate >90: No Temp<36 C (96.8 F) or >38.3 C: No SBP <90 or MAP <65 mmHG: No New Acute Mental Status Change: No Is the patient on CPAP, BIPAP,: No Physician Orders Venous Blood Gas (04/28/25 20:41) Admit (04/29/25 01:15) Code Status (04/29/25:15) Acetaminophen Tablet (Tylenol Tablet) (04/29/25:15) Enoxaparin Sodium (Lovenox) (04/29/25 10:00) Oxygen By Nasal Cannula (04/29/25:15) Stat Ekg For Chest Pain (04/29/25:15) Notify Md Of Changes From Base (04/29/25:15) Stock Unloader For 24 Hours (04/29/25:15) Emergency Dysrhythmia Protocol (04/29/25:15) Rhythm Strips Once Every Shift (04/29/25:15) Complete Blood Count (04/29/25 04:00) Basic Metabolic Panel (04/29/25 04:00) Vitamin D, 25-Hydroxy (04/29/25:15) Vitamin B12 (04/29/25:15) Thyroid Stimulating Hormone (04/29/25:15) Phosphorus (04/29/25:15) Magnesium (04/29/25:15) Lipid Panel (04/29/25:15) Lipase (04/29/25:15) Hemoglobin A1c (04/29/25:15) Drug Screen (04/29/25:15) Chest Xray 1 View (04/29/25:15) Osmolality, Serum (04/29/25:15) Insulin Drip 100 Unit/100ml (Myxredlin 1 (04/29/25:15) Glucose Blood (Accu-Chek Comfort Curve T (04/29/25 01:30) D/C All Diabetic Medications (04/29/25:15) Insulin Drip Protocol (04/29/25:15) Dextrose 50% Syringe (04/29/25:15) Insulin Lantus (Glargine) (Lantus) (04/29/25:15) Insulin Lantus (Glargine) (Lantus) (04/30/25 10:00) Npo (Nothing By Mouth) Diet (04/29/25 Breakfast) Echo 2d Mode Cardiac Dop (04/29/25:15) NS (04/29/25 01:30) NS (04/29/25 01:30) Vital Signs Date Time Temp Pulse Resp B/P (MAP) Pulse Ox O2 Delivery O2 Flow Rate FiO2 04/28/25 23:06 98.1 89 16 127/72 (90) 100 98.1 04/28/25 20:50 98.3 79 16 124/79 (94) 98 98.3 04/28/25 20:25 97.7 97 17 132/68 97 97.7 Laboratory Tests Test 04/28/25 20:54 White Blood Count 8.9 10^3/uL (4.4-10.8) Medications Medications Dose Ordered Sig/Annika Route Start Time Stop Time Status Last Admin Dose Admin Insulin Human Regular 4 units ONCE ONCE SC 04/28/25 20:45 04/28/25 20:46 DC 04/28/25 20:59 4 UNITS Sodium Chloride 1,000 ml @ 1,000 mls/hr Q1H ONCE IV 04/28/25 20:45 04/28/25 21:44 DC 04/28/25 21:17 1,000 MLS/HR Assessment/Plan Assessment/Plan ASSESSMENT Hyperglycemic hyperosmolar state LOVE hemodynamically mediated (VMN) Hyperkalemia Hypovolemic hyponatremia / pseudohyponatremia Rule out choledocholithiasis/cholecystitis Mild microcytic anemia/probable thalassemia Hypertension Dyslipidemia Diabetes - Uncontrolled (hemoglobin A1c 10.5%) Severe malnutrition (BMI 15.4) PLAN Patient admitted to [facility] for insulin drip due to HHS Indicated IV fluid Ordered BMP Q 4 hours Patient will need insulin therapy as outpatient due to hemoglobin A1c above 9%. Have discussed with patient planning therapy. Indicated diabetic education Ordered abdomen ultrasound to rule out right upper quadrant causes of pain (cholelithiasis/cholecystitis) Patient currently NPO Suggest starting start p.o. medication once patient resolves her HHS. Probable cause of her severe malnutrition is insulinopenic state. Indicate IV insulin, she will require Lantus. Ordered echocardiogram to evaluate end-organ damage Goals of care discussed with patient for over 18 minutes: Full code status. Discussed case with Dr. Joshi, patient, family and nurses: Patient admitted to [facility] requiring IV insulin drip until HHS is resolved (until serum osmolarity is below 300). Indicated IV fluids, BMP Q 4 hours, bowel rest with NPO. O rdered abdomen ultrasound and echocardiogram. Patient has poor prognosis. Patient unstable for transferred to [place] Plan discussed with: Patient, Spouse, Other (Nurses) My Orders Orders - ROMAIN CALLAHAN RESIDENT Procedure Category Date Status Time Admit ADMIT 04/29/25 Transmitted 01:15 Code Status CODE 04/29/25 Transmitted 01:15 Acetaminophen Tablet PHA 04/29/25 Logged (Tylenol Tablet) 01:15 Enoxaparin Sodium PHA 04/29/25 Logged (Lovenox) 10:00 Oxygen By Nasal RT 04/29/25 Transmitted Cannula 01:15 Stat Ekg For Chest [facility] 04/29/25 In Process Pain 01:15 Notify Md Of Changes [facility] 04/29/25 In Process From Base 01:15 Stock Unloader For [facility] 04/29/25 In Process 24 Hours 01:15 Emergency Dysrhythmia [facility] 04/29/25 In Process Protocol 01:15 Rhythm Strips Once [facility] 04/29/25 In Process Every Shift 01:15 Complete Blood Count LAB 04/29/25 Logged 04:00 Basic Metabolic Panel LAB 04/29/25 Logged 04:00 Vitamin D, 25-Hydroxy LAB 04/29/25 Transmitted 01:15 Vitamin B12 LAB 04/29/25 Logged 01:15 Thyroid Stimulating LAB 04/29/25 Logged Hormone 01:15 Phosphorus LAB 04/29/25 Logged 01:15 Magnesium LAB 04/29/25 Logged 01:15 Lipid Panel LAB 04/29/25 Logged 01:15 Lipase LAB 04/29/25 Logged 01:15 Hemoglobin A1c LAB 04/29/25 Logged 01:15 Drug Screen LAB 04/29/25 Logged 01:15 Chest Xray 1 View XY 04/29/25 Logged 01:15 Osmolality, Serum LAB 04/29/25 Logged 01:15 Insulin Drip 100 PHA 04/29/25 Logged Unit/100ml (Myxredlin 01:15 Glucose Blood PHA 04/29/25 Logged (Accu-Chek Comfort 01:30 D/C All Diabetic [facility] 04/29/25 In Process Medications 01:15 Insulin Drip Protocol [facility] 04/29/25 In Process 01:15 Dextrose 50% Syringe PHA 04/29/25 Logged 01:15 Insulin Lantus PHA 04/29/25 Logged (Glargine) (Lantus) 01:15 Insulin Lantus PHA 04/30/25 Logged (Glargine) (Lantus) 10:00 Npo (Nothing By DIET 04/29/25 Transmitted Mouth) Diet Breakfast Echo 2d Mode Cardiac US 04/29/25 Logged DOP 01:15 NS PHA 04/29/25 Verified 01:30 NS PHA 04/29/25 Verified 01:30 Date of Service: Apr 29, 2025 Billing Provider: ISIS JOSHI MD Common Visit Codes: [id number] INP/OBS CARE (HIGH) Secondary Visit Codes: [id number] CARE PLAN 30 MINUTES ROMAIN CALLAHAN RESIDENT Apr 29, 2025 01:21
[2025-04-29] MEDS: ACCU-CHEK COMFORT CURVE STRIP VI SCH ×3 (01:30→16:22)
[2025-04-29] MEDS: SODIUM CHLORIDE 0.9% 1,000 ML IV ONE (01:30)
[2025-04-29 01:47] LABS: Cholesterol 181.0 mg/dL (< 200)
--- NOTE | 2025-04-29 01:48 | DVH ---
CHEST RADIOGRAPH Indication: SOB Technique: Single frontal view of the chest was obtained COMPARISON: XY CHEST PORTABLE on DOS: 03/29/25, XY CHEST PORTABLE on DOS: 10/21/23 FINDINGS: Lungs and pleural spaces are clear. Cardiac silhouette and jose rafael are within normal limits. Bones and s oft tissues demonstrate no significant abnormality. IMPRESSION: No acute disease.
[2025-04-29 02:10] LABS: HDL Cholesterol 79.0 mg/dL (40-59); Triglycerides 223.0 mg/dL (< 150)
[2025-04-29 02:21] LABS: Lipase 64.0 U/L (12-53)
[2025-04-29] MEDS: INSULIN DRIP 100 UNIT/100ML 100 ML IV SCH (04:52)
[2025-04-29] MEDS: SODIUM CHLORIDE 0.9% 1,000 ML IV SCH (06:48)
[2025-04-29 06:51] VITALS: PULSE 68; RESP 16; O2SAT 98
[2025-04-29 08:00] VITALS: RESP 14; O2SAT 100
[2025-04-29 08:42] LABS: Hematocrit 34.1 % (36.0-46.0); Hemoglobin 10.8 g/dL (12.2-16.2); Mean Corpuscular Hemoglobin 20.8 pg (28.0-32.0); Mean Corpuscular Volume 65.8 fL (80.0-100.0); Nucleated Red Blood Cells % 0.1 %
[2025-04-29 08:46] LABS: Chloride 102 mmol/L (98-107); Sodium 136 mmol/L (136-145)
[2025-04-29 08:47] LABS: Anion Gap 10 (5-15); Calcium 9.0 mg/dL (8.7-10.4); Carbon Dioxide 24 mmol/L (20-31)
[2025-04-29 08:48] LABS: Potassium 5.4 mmol/L (3.5-5.1)
[2025-04-29 08:52] LABS: BUN/Creatinine Ratio 29.7 (10.0-20.0)
[2025-04-29 09:02] LABS: Blood Urea Nitrogen 43 mg/dL (9-23); Glucose 320 mg/dL (74-106)
[2025-04-29 10:00] VITALS: PULSE 70; RESP 14; O2SAT 100
[2025-04-29] MEDS: ENOXAPARIN SOD 30 MG/0.3 ML SYRINGE SC SCH (10:00)
[2025-04-29] MEDS: ALBUTEROL SULF 2.5 MG/0.5ML(0.5%) NEB SOLN NEB ONE (10:27)
[2025-04-29] MEDS: ALBUTEROL SULF 2.5 MG/0.5ML(0.5%) NEB SOLN ONE (10:28)
[2025-04-29] MEDS: INSULIN LANTUS (GLARGINE) 1 /0.01ml (100units/ml) SC SCH (11:06)
[2025-04-29] MEDS: SODIUM ZIRCONIUM CYCL 10 GM PAK PO ONE (11:09)
[2025-04-29] MEDS: SOD CHL 0.45% 1,000 ML IV SCH (11:11)
[2025-04-29 11:14] LABS: Iron 58.0 ug/dL (50-170)
[2025-04-29 11:17] LABS: Total Iron Binding Capacity 320.0 ug/dL (250-425)
--- NOTE | 2025-04-29 11:31 | DVH ---
INDICATION: RUQ pain TECHNIQUE: Multiple real-time sonographic images of the abdomen were obtained. COMPARISON: None FINDINGS: The liver is homogenous in echogenicity. The liver measures 14.1 cm. No intrahepatic bilia ry ductal dilatation is noted. The gallbladder wall measures 1.4 mm and is unremarkable. No gallstones or sludge is seen. The com mon duct measures 3.3 mm and is unremarkable. No pericholecystic fluid is noted. The right kidney measures 8.7 cm. No hydronephrosis. The left kidney measures 8 cm. No hydronephros is. 1.8 x 1.6 x 1.6 cm anechoic lesion upper pole left kidney The spleen measures 9 cm, within normal limits. The echogenicity is within normal limits. The pancreas is not well visualized due to obscuration from bowel gas. The visualized portions of the IVC and aorta are grossly unremarkable. Proximal aorta measures 2.2 cm IMPRESSION: 1. Liver measures 14.1 cm 2. Gallbladder normal no gallbladder wall thickening dilatation of the common bile duct. Negative son ographic woodson's sign is elicited.
[2025-04-29] MEDS: InsuLIN REG 1unit/0.01ml Soln (100units/ml) SC SCH ×2 (12:24→16:23)
[2025-04-29 13:29] LABS: Chloride 100 mmol/L (98-107); Potassium 4.3 mmol/L (3.5-5.1); Sodium 136 mmol/L (136-145)
[2025-04-29 13:30] LABS: Anion Gap 15 (5-15); Carbon Dioxide 21 mmol/L (20-31)
[2025-04-29 13:31] LABS: Calcium 9.0 mg/dL (8.7-10.4)
[2025-04-29 13:35] LABS: BUN/Creatinine Ratio 25.9 (10.0-20.0)
[2025-04-29 13:37] LABS: Blood Urea Nitrogen 37 mg/dL (9-23); Glucose 387 mg/dL (74-106)
--- NOTE | 2025-04-29 14:03 | DVHPNRES ---
Progress Note Date Seen: Apr 29, 2025 Resident Creating Document: JHTayeJPOLINA EstradaBOWEN RESIDENT Medical Necessity Reason Pt with a Central, PICC or Fol: No Subjective Review of Systems Patient is a 74-year-old female patient who presents to the ED with chief complaint of generalized weakness, fatigue, right-sided headache 04/20 which lasted for over 24 hours, , unintentional weight loss (in the last 1-2 months about 30 pound weight loss), nausea intermittent dyspnea in variable functional class, dizziness and colicky right upper quadrant pain. Patient reports her glucose was above 600 and came to the ED to be evaluated in the hospital. At home patient is on glipizide and metformin, not taking any insulin Denies any other associated symptoms, including sick contacts, Past medical history: Hypertension, dyslipidemia, diabetes, CVA one month ago with minimal right lower extremity weakness, asthma, hypothyroidism. Surgical history: Total hysterectomy in Family history: Noncontributory Social history: Lives in [place] with (he is her next of kin). Ex tobacco abuse (20 pack-year history of smoking) quit in 1979. Denies current tobacco, alcohol and other drug abuse Allergies: Denies Home medication: Glipizide, metformin, levothyroxine 25 mcg p.o. daily, losartan 100 mg p.o. daily, hydrochlorothiazide Review of systems Patient seen and examined at the bedside Alert and oriented x4 Patient denied any headache but reported of mild diffuse abdominal pain and tenderness, no diarrhea or constipation Patient reported having undergone total hysterectomy , mammogram was done about 2 years ago was negative, does not report of getting a colonoscopy recently Objective vital signs Vital Sign Date Time Temp Pulse Resp B/P (MAP) Pulse Ox O2 Delivery O2 Flow Rate FiO2 04/29/25 12:00 98.0 104 17 98 98.0 04/29/25 10:28 Room Air* 0 21 Total Intake and Output 04/28/25 04/28/25 04/29/25 15:00 23:00 07:00 Intake Total 1000 ml Balance 1000 ml medications Current Medications Medications Dose Ordered Sig/Annika Route Start Time Stop Time Status Last Admin Dose Admin Acetaminophen 325 mg Q4HP PRN PO 04/29/25 01:15 Enoxaparin Sodium 30 mg DAILY SC 04/29/25 10:00 04/29/25 10:00 30 MG Sodium Chloride 1,000 ml @ 75 mls/hr [id number] IV 04/29/25 10:00 04/29/25 11:11 75 MLS/HR Insulin Glargine 12 units DAILY@1000 SC 04/29/25 10:00 04/29/25 11:06 12 UNITS Diagnostic Test (Pha) 1 strip IQ4HR 04/29/25 12:00 04/29/25 12:11 1 STRIP Insulin Human Regular IQ4HR SC 04/29/25 12:00 04/29/25 12:24 15 UNITS Dextrose 50 ml UD PRN IV 04/29/25 10:00 Levothyroxine Sodium 25 mcg QAM@0600 PO 04/30/25 06:00 Examination Gen - no pallor, no icterus, no cyanosis, no clubbing, no LAD, no edema . Skin - Patients skin is warm and dry. HEENT - normocephalic, atraumatic, moist mucous membranes. Neck - full ROM, no LAD, no JVD Pulmonary - B/L equal breath sounds, no crackles, no wheezing, no stridor. cardiovascular - regular S1,S2 heard, no added sounds, no murmurs heard. peripheral pulses normal radial 2+, pedal 2+. capillary refill normal <2 secs. GI - soft abdomen with mild tenderness to palpation diffusely in the lower quadrants. no hepatospleenomegaly. Bowel sounds normoactive Neurological - Patient is A/O X 4 . Bilateral upper extremity strength 5/5, bilateral lower extremity strength 5/5, no facial droop, normal speech, no tremor, no sensory deficiets. laboratory and microbiology Laboratory Tests 04/29/25 12:39 04/29/25 08:08 Test 04/29/25 12:39 Range/Units Serum Glucose 387 H 74-106 mg/dL Problem List/Assessment/Plan Problem List/Assessment/Plan Uncontrolled type 2 diabetes mellitus with a severe hyperglycemia Ruled out DKA/HHS Likely catabolic state - serum osmolality at 307, patient's alert and oriented x4 - HbA1c >10% - on insulin Lantus 12 units - aggressive insulin sliding scale - clear liquid diet Anemia with severe microcytosis and hypochromia ? Thalassemia - iron panel normal - peripheral blood film pending - lactate dehydrogenase retic count is normal, pending haptoglobin LOVE on CKD likely due to VMN Pseudohyponatremia because of hyperglycemia Hyperkalemia - IV fluids, kidney function improving - corrected sodium on arrival 128, improved to 136 - hyperkalemia protocol given Significant weight loss, possible due to catabolic state ? Rule out malignancy - abdominal ultrasound revealed anechoic lesion in the left upper pole of kidney, normal liver, spleen, gallbladder - patient may benefit CT abdomen pelvis with IV contrast since she was complaining of diffuse abdominal pain, not done today because of kidney function - reports last mammogram to be about 2 years ago which was normal - history of total hysterectomy in 1970s, patient does not know remember the reason, pelvic ultrasound pending Recent history of CVA Headaches - CT head pending History of hypothyroidism TSH on the upper limit of normal Continued on levothyroxine 25 mcg daily PUD prophylaxis: Protonix DVT prophylaxis: Enoxaparin Goals of care discussed with the patient for over 29 minutes. Full code Patient is unstable for transfer to [place] Time spent: 41 mins Plan discussed with Dr. Cho Plan discussed with: Patient, Other (RN Phyllis) My Orders My Orders Orders - JADA LONDON Procedure Category Date Status Time Clear Liq Diet DIET 04/29/25 Transmitted Lunch Sod Chl 0.45% (Sodium PHA 04/29/25 In Process Chloride 0.45% Via 10:00 Insulin Lantus PHA 04/29/25 In Process (Glargine) (Lantus) 10:00 Glucose Blood PHA 04/29/25 In Process (Accu-Chek Comfort 12:00 Insulin R (Human) PHA 04/29/25 In Process (Insulin R) 12:00 Dextrose 50% Syringe PHA 04/29/25 In Process 10:00 Levothyroxine Tablet PHA 04/30/25 In Process (Synthroid Tablet) 06:00 Transfer Orders XFER 04/29/25 Transmitted 11:16 Glucose Blood PHA 04/29/25 Transmitted (Accu-Chek Comfort 16:00 Agressive Insulin Ss PHA 04/29/25 Transmitted 16:00 Dextrose 50% Syringe PHA 04/29/25 Transmitted 14:00 Date of Service: Apr 29, 2025 Billing Provider: BENITEZ CHO MD Common Visit Codes: [id number] INP/OBS CARE(HIGH) JADA LONDON RESIDENT Apr 29, 2025 14:03 BENITEZ CHO MD May 01, 2025 10:30
[2025-04-29 14:18] LABS: Wright Stain Ready for Review
--- NOTE | 2025-04-29 15:57 | DVHSR ---
APPROVED REPORT EXAM: LIMITED Two-dimensional and M-mode echocardiogram with Doppler and color Doppler. Blood Pressure: 131/65 mmHg INDICATION SOB RISK FACTORS Height: 5' 5", Weight: 87 DIMENSIONS LVDd3.6 (3.8-5.7cm)LA (2D)2.5 (1.9-4.0cm)Aortic Root2.9 (2.0-3.7cm) LVDs2.7 (2.5-4.0cm)LA (MM) (1.9-4.0cm)Aortic Cusp Exc1.4 (1.5-2.0cm) EF (%) 50.0 (55-70%)Rt. Atrium2.8 (1.9-4.0cm)Asc. Aorta cm IVSd0.8 (0.7-1.1cm)RV (D) (1.8-2.4cm) PWd0.7 (0.7-1.1cm) Mitral Valve MitralMitral Stenosis E wave0.80m/sMV Mean GR.mmHg A wave0.70m/sMV Peak GR.mmHg E/A ratio1.12D MVAcm2 Aortic Valve Aortic ValveAortic Stenosis V10.70m/Yaima Mean GR.3mmHg V21.10m/Yaima Peak GR.6mmHg LVOT Diameter1.9 (1.8-2.4cm)Doppler AVA1.80cm2 Other Information Quality : Technically LimitedRhythm : Technically limited study due to body habitus, patient is very thin. Conclusion Sinus rhythm. Concentric LVH. Aortic root enlargement Mild dilation of the sinuses of Valsalva. Left ventricular systolic performance is preserved at 60% with normal RV function. Mild TR. [id number] pericardial effusion not hemodynamically significant. No intracardiac masses thrombi or vegetations discernible.
[2025-04-29] MEDS: PANTOPRAZOLE 40 MG TAB PO ONE (16:35)
--- NOTE | 2025-04-29 16:53 | DVH ---
ULTRASOUND OF THE PELVIS (NON-OB) FEMALE INDICATION: diffuse lower abd pain. History of total hysterectomy. . COMPARISON: None TECHNIQUE AND FINDINGS: Transabdominal Ultrasound: Transabdominal ultrasound examination was performed. Endovaginal Ultrasound: Not performed UTERUS: Absent RIGHT OVARY: Absent LEFT OVARY: Absent CUL de SAC: No evidence of pelvic free fluid or mass. OTHER: The urinary bladder is grossly unremarkable. There is moderate bowel gas in the pelvis and low er abdomen which degrades evaluation. IMPRESSION: Prior total hysterectomy. No mass or fluid is identified in the pelvis within the limitations of obst ructive bowel gas.
--- NOTE | 2025-04-29 17:24 | DVH ---
CT HEAD WITHOUT CONTRAST INDICATION: intractable headache, significant weight loss COMPARISON: None TECHNIQUE: CT of the head without intravenous contrast. RADIATION DOSE: CTDIvol: 51 mGy, DLP: 910 mGy*cm FINDINGS: There is no evidence of acute intracranial hemorrhage, extra-axial collection, mass effect, midline s hift, herniation or hydrocephalus. The ventricles, sulci and cisterns are age appropriate. The bucio -white differentiation is intact. Complete opacification of the left maxillary sinus. The surroundi ng soft tissues and osseous structures are unremarkable. IMPRESSION: 1. No acute intracranial abnormality. 2. Left maxillary sinusitis.
[2025-04-29 22:00] VITALS: BP 135/78; PULSE 70; RESP 18; TEMP 98.4; O2SAT 98
[2025-04-29 22:56] VITALS: BP 135/78; PULSE 70; RESP 18; TEMP 98.4; O2SAT 98
[2025-04-29 23:18] LABS: Amphetamine Screen, Urine Neg (NEGATIVE); Barbiturate Scree,Urine Neg (NEGATIVE); Benzodiazephine Screen, Urine Neg (NEGATIVE); Cannabinoid Screen, Urine Pos (NEGATIVE); Cocaine Screen, Urine Neg (NEGATIVE); Opiate Scree,Urine Neg (NEGATIVE); Phencyclidine Screen, Urine Neg (NEGATIVE)
[2025-04-29] MEDS: ACETAMINOPHEN 325 MG TAB PO PRN (23:23)
[2025-04-30 05:00] VITALS: BP 104/71; PULSE 65; RESP 20; TEMP 97.8; O2SAT 98
[2025-04-30] MEDS: LEVOTHYROXINE SODIUM 25 MCG TAB PO SCH (06:04)
[2025-04-30] MEDS: PANTOPRAZOLE 40 MG TAB PO SCH (06:04)
[2025-04-30 06:35] LABS: Anion Gap 10 (5-15); Calcium 9.8 mg/dL (8.7-10.4); Carbon Dioxide 26 mmol/L (20-31); Chloride 102 mmol/L (98-107); Potassium 4.6 mmol/L (3.5-5.1); Sodium 138 mmol/L (136-145)
[2025-04-30 06:36] LABS: Hematocrit 34.0 % (36.0-46.0); Hemoglobin 10.6 g/dL (12.2-16.2); Mean Corpuscular Hemoglobin 21.0 pg (28.0-32.0); Mean Corpuscular Volume 67.2 fL (80.0-100.0); Nucleated Red Blood Cells % 0.2 %
[2025-04-30 06:41] LABS: BUN/Creatinine Ratio 16.8 (10.0-20.0); Blood Urea Nitrogen 19 mg/dL (9-23)
[2025-04-30 06:42] LABS: Magnesium 2.3 mg/dL (1.6-2.6)
[2025-04-30 06:43] LABS: Glucose 166 mg/dL (74-106)
[2025-04-30 08:00] VITALS: PULSE 72; RESP 18; O2SAT 95
[2025-04-30 09:00] VITALS: BP 130/73; PULSE 59; RESP 15; TEMP 98.2; O2SAT 100
[2025-04-30] MEDS ORDERED: INSULIN LANTUS (GLARGINE) 1 /0.01ml (100units/ml) SC SCH (10:00)
[2025-04-30 12:45] VITALS: BP 122/70; PULSE 65; RESP 18; TEMP 36.8; O2SAT 95
[2025-04-30] MEDS ORDERED: METF-372 PO (13:40)
--- NOTE | 2025-04-30 15:48 | DVHDSRES ---
Discharge Summary Date of Admission Resident Creating Document: NANCY SIMPSON RESIDENT Apr 29, 2025 at 01:15 Date of Discharge: Apr 30, 2025 Labs/Diagnostic Data: Laboratory Results Test 04/30/25 12:16 04/30/25 05:10 04/29/25 16:16 04/29/25 12:39 POC Glucose 194 mg/dl (70-106) White Blood Count 6.5 10^3/uL (4.4-10.8) Red Blood Count 5.06 10^6/uL (4.0-5.20) Hemoglobin 10.6 g/dL (12.2-16.2) Hematocrit 34.0 % (36.0-46.0) Mean Corpuscular Volume 67.2 fL (80.0-100.0) Mean Corpuscular Hemoglobin 21.0 pg (28.0-32.0) Mean Corpuscular Hemoglobin Concent 31.3 g/dL (32.0-36.0) Red Cell Distribution Width 15.5 % (11.8-14.3) Platelet Count 214 10^3/uL (140-450) Mean Platelet Volume 8.9 fL (6.9-10.8) Neutrophils (%) (Auto) 58.2 % (37.0-80.0) Lymphocytes (%) (Auto) 31.8 % (10.0-50.0) Monocytes (%) (Auto) 8.3 % (0.0-12.0) Eosinophils (%) (Auto) 1.2 % (0.0-7.0) Basophils (%) (Auto) 0.5 % (0.0-2.0) Neutrophils # (Auto) 3.8 10 ^3/uL (1.6-8.6) Lymphocytes # (Auto) 2.1 10 ^3/uL (0.4-5.4) Monocytes # (Auto) 0.5 10 ^3/uL (0-1.3) Eosinophils # (Auto) 0.1 10 ^3/uL (0-0.8) Basophils # (Auto) 0 10 ^3/uL (0-0.2) Nucleated Red Blood Cells 0.2 % Sodium Level 138 mmol/L (136-145) Potassium Level 4.6 mmol/L (3.5-5.1) Chloride Level 102 mmol/L (98-107) Carbon Dioxide Level 26 mmol/L (20-31) Anion Gap 10 (5-15) Blood Urea Nitrogen 19 mg/dL (9-23) Creatinine 1.13 mg/dL (0.550-1.02) Glomerular Filtration Rate Calc 50 mL/min (>90) BUN/Creatinine Ratio 16.8 (10.0-20.0) Serum Glucose 166 mg/dL (74-106) Calcium Level 9.8 mg/dL (8.7-10.4) Phosphorus Level 3.0 mg/dL (2.4-5.1) Magnesium Level 2.3 mg/dL (1.6-2.6) Lactate Dehydrogenase 136 U/L (120-246) Test 04/29/25 08:08 04/29/25 01:37 04/28/25 21:35 04/28/25 21:34 Reticulocyte Count (auto) 0.95 % (0.5-1.5) Serum Osmolality 314 mOsm/kg (278-298) Iron Level 58 ug/dL (50-170) Total Iron Binding Capacity 320 ug/dL (250-425) Percent Iron Saturation 18.1 % (15-50) Ferritin 32.8 ng/mL (10-291) Urine Opiates Screen Neg (NEGATIVE) Urine Fentanyl Screen Neg (NEGATIVE) Urine Barbiturates Screen Neg (NEGATIVE) Urine Phencyclidine Screen Neg (NEGATIVE) Urine Amphetamines Screen Neg (NEGATIVE) Urine Benzodiazepines Screen Neg (NEGATIVE) Urine Cocaine Screen Neg (NEGATIVE) Urine Cannabinoids Screen Pos (NEGATIVE) Urine Color Colorless (Yellow) Urine Clarity Clear (Clear) Urine pH 5.0 (5.0-9.0) Urine Specific [place] 1.004 (1.001-1.035) Urine Protein Negative (Negative) Urine Ketones Negative (Negative) Urine Blood Negative /uL (Negative) Urine Nitrite Negative (Negative) Urine Bilirubin Negative (Negative) Urine Urobilinogen Normal mg/dL (Negative) Urine Leukocyte Esterase Negative /uL (Negative) Urine RBC <1 /hpf (0 - 4) Urine Microscopic WBC < 1 /HPF (0-5) Urine Squamous Epithelial Cells Few /hpf (<5) Urine Bacteria None seen /hpf (None Seen) Urine Glucose 4+ mg/dL (Normal) Test 04/28/25 20:54 04/28/25 20:50 Hemoglobin A1c 10.5 % A1C (<5.7) Total Bilirubin 0.4 mg/dL (0.2-1.0) Aspartate Amino Transferase (AST) 17 U/L (13-40) Alanine Aminotransferase (ALT) 15 U/L (7-40) Alkaline Phosphatase 80 U/L (46-116) Total Protein 9.2 g/dL (5.7-8.2) Albumin 4.7 g/dL (3.2-4.8) Triglycerides Level 223 mg/dL (< 150) Cholesterol Level 181 mg/dL (< 200) LDL Cholesterol 79 mg/dL (< 100) HDL Cholesterol 79 mg/dL (40-59) Lipase 64 U/L (12-53) Vitamin B12 Level 1474 pg/mL (211-911) Vitamin D 25-Hydroxy 38.9 ng/mL (30.0-100) Thyroid Stimulating Hormone (TSH) 4.59 uIU/mL (0.55-4.78) Blood Gas Specimen Type Venous Blood Gas Sample Site Vbg - n/a Blood Gas Patient Temperature 37.0 Arterial Blood Date Drawn [id number] Brendan Test N/a Venous Blood pH 7.400 (7.320-7.430) Venous Blood pCO2 at Patient Temp 36.6 mmHg (38.0-54.0) Venous Blood pO2 at Patient Temp < 36.5 mmHg (23.0-48.0) Venous Blood HCO3 22.2 mmol/L (22.0-29.0) Venous Blood Base Excess -2.1 mmol/L (-2.0-3.0) Blood Gas Modality Room air FiO2 % 21.0 Other Laboratory Tests 04/30/25 05:10 Brief Hx & Hospital Course: The patient is a 74-year-old female with a history of hypertension, dyslipidemia, diabetes, asthma, hypothyroidism, and a recent CVA presenting to the ED with generalized weakness, severe right-sided headache (10/10 for over 24 hours), fatigue, dizziness, intermittent dyspnea, nausea, colicky right upper quadrant pain, and significant unintentional weight loss (~30 lbs over 12 months). She reported a home glucose reading over 600 and came for evaluation. Her home medications include glipizide and metformin, with no insulin use. She denies sick contacts or other associated symptoms. In the hospital, she was treated with iv fluids, insulin Lantus, sliding scale insulin, Protonix, and pain medications. Blood glucose levels were down. Patient was symptomatically better, hence being discharged. Home metformin dose increased to 1000 mg twice daily. Condition at Discharge: Fair Final Diagnosis/Problems List Uncontrolled type 2 diabetes mellitus with a severe hyperglycemia Ruled out DKA/HHS, Likely catabolic state Anemia with severe microcytosis and hypochromia LOVE on CKD likely due to VMN Pseudohyponatremia because of hyperglycemia Hyperkalemia Significant weight loss, possible due to catabolic state Recent history of CVA Hypothyroidism Discharge Disposition: Home Discharge Instruct/Medications Diet: Consistent carbohydrate Activity: No Restrictions, As Tolerated Medications: Metformin 1000 MG twice daily Scheduled Metformin Hydrochloride (Metformin Hcl), 1 TAB PO BID Scheduled PRN Diclofenac Sodium (Diclofenac Sodium Dr), 1 TAB PO BID PRN Discharge Statement: "Patient was advised to return to the ER or call 911 if any headaches, dizziness, shortness of breath, chest pain, abdominal pain, bleeding, fevers, or worsening of medical condition. Patient was counseled about treatment plan, medications, possible side effects, patientverbalized understanding. All questions were answered to the best of my ability. This discharge took greater then 30 minutes in planning, reviewing documentation, counseling the patient, and discussing with other team members." ASSESSMENT ASSESSMENT Assessment Uncontrolled Type 2 DM with severe hyperglycemia LOVE on CKD NANCY SIMPSON RESIDENT Apr 30, 2025 15:25
== END 2025-04-30 13:44 | disposition home or self-care (01) | DRG 637 ==
LOC: EDBD 20:07 → ER 20:07 → OVERFLOW 04-29 01:15 → TELE-WESTW 04-29 21:58
PROVIDERS: ADMIT Internal Medicine Geriatric Medicine; ATTEND Internal Medicine Geriatric Medicine
DX: E11.65 Type 2 diabetes mellitus with hyperglycemia (principal); E43 Unspecified severe protein-calorie malnutrition; N17.0 Acute kidney failure with tubular necrosis; Z68.1 Body mass index [BMI] 19.9 or less, adult; E87.5 Hyperkalemia; E78.5 Hyperlipidemia, unspecified; E87.8 Other disorders of electrolyte and fluid balance, not elsewhere classified; E03.9 Hypothyroidism, unspecified; E86.1 Hypovolemia; D50.9 Iron deficiency anemia, unspecified; J45.909 Unspecified asthma, uncomplicated; I12.9 Hypertensive chronic kidney disease with stage 1 through stage 4 chronic kidney disease, or unspecified chronic kidney disease; N18.9 Chronic kidney disease, unspecified; Z86.73 Personal history of transient ischemic attack (TIA), and cerebral infarction without residual deficits; Z90.710 Acquired absence of both cervix and uterus; Z79.899 Other long term (current) drug therapy
CPT/HCPCS: 36415; 36600; 80053; 81001; 82805; 82962; 83735; 85025; 96372; 99291; J1815; 70450; 71045; 76700; 76856; 80048; 80061; 80307; 82306; 82607; 82728; 83010; 83036; 83540; 83550; 83615; 83690; 83930; 84100; 84443; 85045; 93306; 94640; G0378